=== PATIENT | female | born 1965 | race Hispanic/Latino ===

== ENCOUNTER → 2024-01-11 | Emergency (ER) | payer OTHER ==
[~2024-01-11] MED LIST: Enalaprilat Dihydrate 1.25 MG/ML VIAL SLOW IVP SCH; Ondansetron PF 4 MG/2 ML Vial ONE
[2024-01-11 23:46] LABS: #Basophils 0.03 10x3/uL (0.0-0.2); #Monocytes 0.51 10x3/uL (0.0-1.1); #Neutrophils 4.83 10x3/uL (1.5-8.4); %Basophils 0.4 % (0.0-2.0); %Eosinophils 1.3 % (0.0-6.0); %Lymphocytes 26.8 % (18.0-47.0); %Monocytes 6.8 % (0.0-10.0); %Neutrophils 64.4 % (40.0-75.0); Hematocrit 42.6 % (34.9-44.5); Hemoglobin 14.7 g/dL (12.0-15.5); Mean Corpuscular HGB CONC 34.5 g/dL (32.0-36.0); Mean Platelet Volume 10.2 fl (7.4-10.4); Platelet Count 254 10x3/uL (150-450); Red Blood Cell (RBC) Count 5.07 10x6/uL (3.90-5.03); White Blood Cell (WBC) Count 7.5 10x3/uL (3.5-10.5)
[2024-01-12] LABS: ALT (SGPT) 13 U/L (8-55); AST (SGOT) 17 U/L (5-34); Albumin 3.6 g/dL (3.5-5.0); Alkaline Phosphatase 85 U/L (40-110); Anion Gap 15 mmol/L (10-20); BUN (Urea Nitrogen) 17 mg/dL (9.8-20.1); Bilirubin, Total 0.4 mg/dL (0.2-1.2); Calc. Creatinine Clearance 0 mL/min (70-130); Carbon Dioxide 21 mmol/L (22-29); Chloride 109 mmol/L (98-107); Estimated GFR 89; Globulin 3.3 g/dL (2.4-3.5); Glucose 105 mg/dL (70-105); Lipase 36 U/L (8-78); Potassium 4.1 mmol/L (3.5-5.1); Protein, Total 6.9 g/dL (6.0-8.3); Sodium 141 mmol/L (136-145)
== END ==
LOC: CSHERS 22:22
DX: K22.2 Esophageal obstruction (principal); I10 Essential (primary) hypertension; Z55.6 Problems related to health literacy
CPT/HCPCS: 80053; 83605; 83690; 85025; 93005; 96361; 96374; 96375; 96376; J2405